=== PATIENT | female | born 1950 | race Caucasian/White ===

== ENCOUNTER 2017-04-10 04:04 | Inpatient (IN) | payer OTHER ==
[~2017-04-10] VITALS: Ht 167.6 cm; Wt 123.3 kg
[~2017-04-10 04:04] MED LIST: AMLODIPINE BESYL5 MG PO; ASPIR-LOW81 MG PO; ASPIRIN81 M2 PO; CARVEDILOL6.25 MG PO; COREG12.5 M1 PO; COZAAR50 MG PO; EFFIENT10 MG PO; FLUOXETINE HCL20 MG PO; FUROSEMIDE40 MG PO; LASIX40 MG PO; LEVEMIR FL100 UNITS/ SC; LEVOFLOXACIN750 MG PO; LEVOTHYROXINE200 MC1 PO; LOSARTAN POTAS100 MG PO; LOSARTAN POTASS50 MG PO; METFORMIN HCL1000 MG PO; METFORMIN HCL500 MG PO; NITROSTAT0.4 MG SL; PRAVACHOL40 MG PO; PROZAC10 MG PO; SIMVASTATIN20 MG PO; SYNTHROID200 MCG PO; TRESIBA FL200 UNIT/1 SC
[2017-04-10 12:55] VITALS: BP 151/72
[2017-04-10 13:02] LABS: POINT-OF-CARE METER ID UU14174212
[2017-04-10 16:56] LABS: POINT-OF-CARE METER ID UU13113675
[2017-04-10 19:03] LABS: HEMATOCRIT 35.2 % (36.0-46.0); MCH 25.5 PG (29.0-34.0); MCHC 30.4 G/DL (30.0-36.0); MEAN PLAT.VOLUME 9.3 uM^3 (9.5-12.4); PLATELET COUNT 382 K/uL (156-360); RBC DIS.WIDTH-CV 16.8 % (11.8-14.6); RBC DIS.WIDTH-SD 51.8 % (39-53); RED BLOOD COUNT 4.19 M/uL (3.80-5.20); WHITE BLOOD COUNT 20.6 K/uL (4.1-10.2)
[2017-04-10 19:28] LABS: TROP-I INTERPRETATION NEGATIVE; TROPONIN-I 0.01 ng/mL (0.0-0.30)
[2017-04-10 19:28] LABS: ANION GAP 7 MEQ/L (2-14); CHLORIDE 104 MEQ/L (99-109); GFR ESTIMATE (CALCULATED) 44 mL/min/; GLUCOSE 167 mg/dL (70-99); POTASSIUM 4.7 MEQ/L (3.7-5.4); SAMPLE HEMOLYSIS CHECK 0; SAMPLE ICTERIC CHECK 0; SAMPLE LIPEMIA CHECK 0; SODIUM 138 MEQ/L (136-147); UREA NITROGEN (BUN) 29 mg/dL (9-23)
[2017-04-10 20:44] VITALS: BP 152/66
[2017-04-10 21:27] LABS: POINT-OF-CARE METER ID UU14314084
[2017-04-10 23:40] VITALS: BP 143/62
[2017-04-11] VITALS (7 sets, daily range): BP systolic 117–163; BP diastolic 57–74
[2017-04-11 01:19] LABS: POINT-OF-CARE METER ID UU14314084
[2017-04-11 05:41] LABS: POINT-OF-CARE METER ID UU14208750
[2017-04-11 07:41] LABS: HEMATOCRIT 35.4 % (36.0-46.0); MCH 25.6 PG (29.0-34.0); MCHC 29.9 G/DL (30.0-36.0); MCV 85.5 FL (83-99); MEAN PLAT.VOLUME 9.7 uM^3 (9.5-12.4); PLATELET COUNT 465 K/uL (156-360); RBC DIS.WIDTH-CV 17.2 % (11.8-14.6); RBC DIS.WIDTH-SD 53.5 % (39-53); RED BLOOD COUNT 4.14 M/uL (3.80-5.20); WHITE BLOOD COUNT 19.1 K/uL (4.1-10.2)
[2017-04-11 08:03] LABS: ANION GAP 9 MEQ/L (2-14); CHLORIDE 102 MEQ/L (99-109); GFR ESTIMATE (CALCULATED) 18 mL/min/; GLUCOSE 210 mg/dL (70-99); POTASSIUM 5.3 MEQ/L (3.7-5.4); SAMPLE HEMOLYSIS CHECK 0; SAMPLE ICTERIC CHECK 0; SAMPLE LIPEMIA CHECK 0; SODIUM 137 MEQ/L (136-147); UREA NITROGEN (BUN) 37 mg/dL (9-23)
[2017-04-11 11:43] LABS: POINT-OF-CARE METER ID UU14162508
[2017-04-11 13:11] LABS: POINT-OF-CARE METER ID UU13113675
[2017-04-11 17:34] LABS: POINT-OF-CARE METER ID UU14162508
[2017-04-11 18:05] LABS: ANION GAP 10 MEQ/L (2-14); CHLORIDE 104 MEQ/L (99-109); GFR ESTIMATE (CALCULATED) 18 mL/min/; GLUCOSE 179 mg/dL (70-99); POTASSIUM 4.9 MEQ/L (3.7-5.4); SAMPLE HEMOLYSIS CHECK 0; SAMPLE ICTERIC CHECK 0; SAMPLE LIPEMIA CHECK 0; SODIUM 138 MEQ/L (136-147); UREA NITROGEN (BUN) 38 mg/dL (9-23)
[2017-04-11 22:28] LABS: ADD MIUA? YES; BILIRUBIN NEGATIVE; BLOOD LARGE; GLUCOSE (STRIP) 50; KETONES NEGATIVE; LEUKOCYTES LARGE; NITRITE NEGATIVE; PROTEIN (STRIP) 100; SPECIFIC GRAVITY 1.016 (1.000-1.030); UROBILINOGEN 0.2 MG/DL (0.2-1.0)
[2017-04-11 22:34] LABS: COLOR RED ((YELLOW))
[2017-04-11 22:35] LABS: BACTERIA NONE SEEN /HPF; CASTS NONE SEEN /LPF; CRYSTALS NONE SEEN; EPITHELIAL CELLS NONE SEEN /HPF; MUCUS NONE SEEN /LPF; RED BLOOD CELLS TNTC /HPF (0-5); WHITE BLOOD CELLS 20-30 /HPF (0-5)
[2017-04-12 00:21] LABS: POINT-OF-CARE METER ID UU14208750
[2017-04-12 04:05] VITALS: BP 133/62
[2017-04-12 05:44] LABS: POINT-OF-CARE METER ID UU14162508
[2017-04-12 06:59] LABS: EOSINOPHIL (%) 0.7 % (0-5); EOSINOPHIL COUNT 0.1 K/uL (0-0.3); HEMATOCRIT 33.6 % (36.0-46.0); IMMATURE GRANULOCYTE (%) 1.3 % (0.0-0.7); IMMATURE GRANULOCYTE COUNT 0.2 K/uL; INSTRUMENT ABS NEUTROPHIL CT 13.5 K/uL; LYMPHOCYTE COUNT 1.5 K/uL (1.0-2.8); MCH 25.9 PG (29.0-34.0); MCHC 29.8 G/DL (30.0-36.0); MEAN PLAT.VOLUME 9.8 uM^3 (9.5-12.4); MONOCYTE (%) 5.4 % (3-12); MONOCYTE COUNT 0.9 K/uL (0-0.8); NEUTROPHIL COUNT 13.5 K/uL (1.8-6.4); PLATELET COUNT 357 K/uL (156-360); RBC DIS.WIDTH-CV 17.7 % (11.8-14.6); RBC DIS.WIDTH-SD 56.8 % (39-53); RED BLOOD COUNT 3.86 M/uL (3.80-5.20); WHITE BLOOD COUNT 16.2 K/uL (4.1-10.2)
[2017-04-12 08:05] LABS: ANION GAP 8 MEQ/L (2-14); CHLORIDE 105 MEQ/L (99-109); GFR ESTIMATE (CALCULATED) 24 mL/min/; GLUCOSE 159 mg/dL (70-99); MAGNESIUM 1.8 mg/dl (1.3-2.7); POTASSIUM 4.9 MEQ/L (3.7-5.4); SAMPLE HEMOLYSIS CHECK 0; SAMPLE ICTERIC CHECK 0; SAMPLE LIPEMIA CHECK 0; SODIUM 139 MEQ/L (136-147); UREA NITROGEN (BUN) 35 mg/dL (9-23)
[2017-04-12 12:37] LABS: POINT-OF-CARE METER ID UU14314084
[2017-04-12 13:04] VITALS: BP 123/58
[2017-04-12 16:12] VITALS: BP 166/73
[2017-04-12 17:29] LABS: POINT-OF-CARE METER ID UU14162508
[2017-04-12 19:56] VITALS: BP 143/66
[2017-04-12 22:01] LABS: POINT-OF-CARE METER ID UU14314084
[2017-04-13] VITALS (7 sets, daily range): BP systolic 116–186; BP diastolic 59–74
[2017-04-13 00:52] LABS: POINT-OF-CARE METER ID UU14314084
[2017-04-13 06:10] LABS: POINT-OF-CARE METER ID UU14314084
[2017-04-13 06:55] LABS: EOSINOPHIL (%) 0.5 % (0-5); EOSINOPHIL COUNT 0.1 K/uL (0-0.3); HEMATOCRIT 32.9 % (36.0-46.0); IMMATURE GRANULOCYTE (%) 0.8 % (0.0-0.7); IMMATURE GRANULOCYTE COUNT 0.1 K/uL; INSTRUMENT ABS NEUTROPHIL CT 14.7 K/uL; LYMPHOCYTE COUNT 1.3 K/uL (1.0-2.8); MCH 25.7 PG (29.0-34.0); MCHC 29.8 G/DL (30.0-36.0); MCV 86.1 FL (83-99); MEAN PLAT.VOLUME 9.8 uM^3 (9.5-12.4); MONOCYTE (%) 5.1 % (3-12); MONOCYTE COUNT 0.9 K/uL (0-0.8); NEUTROPHIL COUNT 14.7 K/uL (1.8-6.4); PLATELET COUNT 364 K/uL (156-360); RBC DIS.WIDTH-CV 17.4 % (11.8-14.6); RBC DIS.WIDTH-SD 54.9 % (39-53); RED BLOOD COUNT 3.82 M/uL (3.80-5.20); WHITE BLOOD COUNT 17.1 K/uL (4.1-10.2)
[2017-04-13 07:19] LABS: ANION GAP 10 MEQ/L (2-14); CHLORIDE 107 MEQ/L (99-109); GFR ESTIMATE (CALCULATED) 17 mL/min/; GLUCOSE 183 mg/dL (70-99); POTASSIUM 4.9 MEQ/L (3.7-5.4); SAMPLE HEMOLYSIS CHECK 0; SAMPLE ICTERIC CHECK 0; SAMPLE LIPEMIA CHECK 0; SODIUM 140 MEQ/L (136-147); UREA NITROGEN (BUN) 39 mg/dL (9-23)
[2017-04-13 12:41] LABS: POINT-OF-CARE METER ID UU14208750
[2017-04-13 16:19] LABS: ANION GAP 8 MEQ/L (2-14); CHLORIDE 105 MEQ/L (99-109); GFR ESTIMATE (CALCULATED) 16 mL/min/; GLUCOSE 206 mg/dL (70-99); POTASSIUM 4.5 MEQ/L (3.7-5.4); SAMPLE HEMOLYSIS CHECK 0; SAMPLE ICTERIC CHECK 0; SAMPLE LIPEMIA CHECK 0; SODIUM 137 MEQ/L (136-147); UREA NITROGEN (BUN) 42 mg/dL (9-23)
[2017-04-13 17:05] LABS: POINT-OF-CARE METER ID UU14208750
[2017-04-14 00:01] LABS: POINT-OF-CARE METER ID UU14162508
[2017-04-14 04:15] VITALS: BP 121/56
[2017-04-14 05:54] LABS: POINT-OF-CARE METER ID UU14208750
[2017-04-14 06:55] LABS: EOSINOPHIL (%) 2.1 % (0-5); EOSINOPHIL COUNT 0.3 K/uL (0-0.3); HEMATOCRIT 29.9 % (36.0-46.0); IMMATURE GRANULOCYTE (%) 0.5 % (0.0-0.7); IMMATURE GRANULOCYTE COUNT 0.1 K/uL; INSTRUMENT ABS NEUTROPHIL CT 11.8 K/uL; LYMPHOCYTE COUNT 1.7 K/uL (1.0-2.8); MCH 26.1 PG (29.0-34.0); MCHC 30.4 G/DL (30.0-36.0); MCV 85.7 FL (83-99); MEAN PLAT.VOLUME 10.1 uM^3 (9.5-12.4); MONOCYTE (%) 5.7 % (3-12); MONOCYTE COUNT 0.8 K/uL (0-0.8); NEUTROPHIL (%) 80.3 % (45-76); NEUTROPHIL COUNT 11.8 K/uL (1.8-6.4); PLATELET COUNT 338 K/uL (156-360); RBC DIS.WIDTH-CV 17.7 % (11.8-14.6); RBC DIS.WIDTH-SD 55.1 % (39-53); RED BLOOD COUNT 3.49 M/uL (3.80-5.20); WHITE BLOOD COUNT 14.7 K/uL (4.1-10.2)
[2017-04-14 07:22] VITALS: BP 125/61
[2017-04-14 07:23] LABS: ANION GAP 9 MEQ/L (2-14); CHLORIDE 108 MEQ/L (99-109); GFR ESTIMATE (CALCULATED) 17 mL/min/; GLUCOSE 151 mg/dL (70-99); MAGNESIUM 1.9 mg/dl (1.3-2.7); POTASSIUM 4.5 MEQ/L (3.7-5.4); SAMPLE HEMOLYSIS CHECK 0; SAMPLE ICTERIC CHECK 0; SAMPLE LIPEMIA CHECK 0; SODIUM 143 MEQ/L (136-147); UREA NITROGEN (BUN) 41 mg/dL (9-23)
[2017-04-14 11:05] VITALS: BP 133/60
[2017-04-14 12:37] LABS: POINT-OF-CARE METER ID UU14208750
[2017-04-14 13:30] LABS: POINT-OF-CARE METER ID UU14208750
[2017-04-14 16:07] VITALS: BP 130/63
[2017-04-14 16:35] LABS: POINT-OF-CARE METER ID UU14314084
[2017-04-14 19:25] LABS: ADD MIUA? YES; BILIRUBIN NEGATIVE; BLOOD LARGE; COLOR YELLOW ((YELLOW)); GLUCOSE (STRIP) NEGATIVE; KETONES NEGATIVE; LEUKOCYTES LARGE; NITRITE NEGATIVE; PROTEIN (STRIP) 100; SPECIFIC GRAVITY 1.015 (1.000-1.030); UROBILINOGEN 0.2 MG/DL (0.2-1.0)
[2017-04-14 19:36] VITALS: BP 144/66
[2017-04-14 20:06] LABS: RED BLOOD CELLS TNTC /HPF (0-5); WHITE BLOOD CELLS 20-30 /HPF (0-5)
[2017-04-14 20:07] LABS: BACTERIA 2+ /HPF; EPITHELIAL CELLS 1+ /HPF; MUCUS RARE /LPF; OTHER RENAL CELLS; UCUL ADDED? YES
[2017-04-14 21:49] LABS: POINT-OF-CARE METER ID UU14208750
[2017-04-14 23:33] VITALS: BP 106/52
[2017-04-15 00:51] LABS: POINT-OF-CARE METER ID UU14208750
[2017-04-15 05:48] LABS: POINT-OF-CARE METER ID UU14208750
[2017-04-15 07:08] LABS: EOSINOPHIL COUNT 0.5 K/uL (0-0.3); HEMATOCRIT 27.6 % (36.0-46.0); IMMATURE GRANULOCYTE (%) 0.6 % (0.0-0.7); IMMATURE GRANULOCYTE COUNT 0.1 K/uL; INSTRUMENT ABS NEUTROPHIL CT 8.8 K/uL; LYMPHOCYTE COUNT 1.5 K/uL (1.0-2.8); MCH 25.5 PG (29.0-34.0); MCHC 29.7 G/DL (30.0-36.0); MEAN PLAT.VOLUME 10.4 uM^3 (9.5-12.4); MONOCYTE (%) 7.1 % (3-12); MONOCYTE COUNT 0.8 K/uL (0-0.8); NEUTROPHIL COUNT 8.8 K/uL (1.8-6.4); PLATELET COUNT 344 K/uL (156-360); RBC DIS.WIDTH-CV 17.4 % (11.8-14.6); RED BLOOD COUNT 3.21 M/uL (3.80-5.20); WHITE BLOOD COUNT 11.7 K/uL (4.1-10.2)
[2017-04-15 07:17] VITALS: BP 165/72
[2017-04-15 07:33] LABS: ANION GAP 9 MEQ/L (2-14); CHLORIDE 107 MEQ/L (99-109); GFR ESTIMATE (CALCULATED) 18 mL/min/; GLUCOSE 170 mg/dL (70-99); MAGNESIUM 1.9 mg/dl (1.3-2.7); POTASSIUM 4.6 MEQ/L (3.7-5.4); SAMPLE HEMOLYSIS CHECK 0; SAMPLE ICTERIC CHECK 0; SAMPLE LIPEMIA CHECK 0; SODIUM 141 MEQ/L (136-147); UREA NITROGEN (BUN) 46 mg/dL (9-23)
[2017-04-15 11:40] VITALS: BP 134/60
[2017-04-15 12:35] LABS: POINT-OF-CARE METER ID UU14162508
[2017-04-15 15:35] VITALS: BP 161/70
[2017-04-15 16:48] LABS: POINT-OF-CARE METER ID UU14162508
[2017-04-15 23:11] LABS: POINT-OF-CARE METER ID UU14162508
[2017-04-15 23:13] VITALS: BP 151/68
[2017-04-16 05:42] LABS: POINT-OF-CARE METER ID UU14208750
[2017-04-16 07:27] VITALS: BP 163/65
[2017-04-16 11:51] LABS: POINT-OF-CARE METER ID UU14162508
[2017-04-16 12:24] LABS: EOSINOPHIL COUNT 0.5 K/uL (0-0.3); HEMATOCRIT 30.9 % (36.0-46.0); IMMATURE GRANULOCYTE (%) 0.4 % (0.0-0.7); IMMATURE GRANULOCYTE COUNT 0.1 K/uL; INSTRUMENT ABS NEUTROPHIL CT 9.4 K/uL; LYMPHOCYTE COUNT 1.7 K/uL (1.0-2.8); MCH 25.6 PG (29.0-34.0); MCHC 29.8 G/DL (30.0-36.0); MCV 85.8 FL (83-99); MONOCYTE (%) 5.7 % (3-12); MONOCYTE COUNT 0.7 K/uL (0-0.8); NEUTROPHIL COUNT 9.4 K/uL (1.8-6.4); PLATELET COUNT 423 K/uL (156-360); RBC DIS.WIDTH-CV 17.2 % (11.8-14.6); RBC DIS.WIDTH-SD 54.7 % (39-53); WHITE BLOOD COUNT 12.4 K/uL (4.1-10.2)
[2017-04-16 13:16] LABS: ALKALINE PHOSPHATASE 105 IU/L (3-129); ANION GAP 9 MEQ/L (2-14); CHLORIDE 104 MEQ/L (99-109); GFR ESTIMATE (CALCULATED) 22 mL/min/; GLUCOSE 224 mg/dL (70-99); POTASSIUM 5.4 MEQ/L (3.7-5.4); SAMPLE HEMOLYSIS CHECK 0; SAMPLE ICTERIC CHECK 0; SAMPLE LIPEMIA CHECK 0; SODIUM 139 MEQ/L (136-147); TOTAL BILIRUBIN 0.3 MG/DL (0.0-1.0); UREA NITROGEN (BUN) 46 mg/dL (9-23)
[2017-04-16 15:20] VITALS: BP 142/59
[2017-04-16] MEDS ORDERED: TRAMADOL HCL50 MG PO (15:33)
[2017-04-16] MEDS ORDERED: CARVEDILOL25 MG PO (15:33)
[2017-04-16] MEDS ORDERED: APRESOLINE25 MG PO (15:33)
[2017-04-16 17:15] LABS: POINT-OF-CARE METER ID UU14208750
[2017-04-16 19:58] VITALS: BP 138/64
[2017-04-17 00:09] LABS: POINT-OF-CARE METER ID UU14208750
[2017-04-17 00:12] VITALS: BP 119/71
[2017-04-17 05:32] LABS: POINT-OF-CARE METER ID UU14208750
[2017-04-17 07:33] LABS: EOSINOPHIL (%) 4.5 % (0-5); EOSINOPHIL COUNT 0.6 K/uL (0-0.3); HEMATOCRIT 28.8 % (36.0-46.0); IMMATURE GRANULOCYTE (%) 0.5 % (0.0-0.7); IMMATURE GRANULOCYTE COUNT 0.1 K/uL; INSTRUMENT ABS NEUTROPHIL CT 9.2 K/uL; LYMPHOCYTE COUNT 2.1 K/uL (1.0-2.8); MCH 25.6 PG (29.0-34.0); MCHC 29.9 G/DL (30.0-36.0); MCV 85.7 FL (83-99); MEAN PLAT.VOLUME 9.9 uM^3 (9.5-12.4); MONOCYTE (%) 7.1 % (3-12); MONOCYTE COUNT 0.9 K/uL (0-0.8); NEUTROPHIL (%) 71.6 % (45-76); NEUTROPHIL COUNT 9.2 K/uL (1.8-6.4); PLATELET COUNT 397 K/uL (156-360); RBC DIS.WIDTH-CV 17.2 % (11.8-14.6); RBC DIS.WIDTH-SD 54.4 % (39-53); RED BLOOD COUNT 3.36 M/uL (3.80-5.20); WHITE BLOOD COUNT 12.8 K/uL (4.1-10.2)
[2017-04-17 07:50] VITALS: BP 162/76
[2017-04-17 08:11] LABS: ANION GAP 7 MEQ/L (2-14); CHLORIDE 106 MEQ/L (99-109); GFR ESTIMATE (CALCULATED) 23 mL/min/; GLUCOSE 166 mg/dL (70-99); MAGNESIUM 2.1 mg/dl (1.3-2.7); POTASSIUM 5.4 MEQ/L (3.7-5.4); SAMPLE HEMOLYSIS CHECK 0; SAMPLE ICTERIC CHECK 0; SAMPLE LIPEMIA CHECK 0; SODIUM 140 MEQ/L (136-147); UREA NITROGEN (BUN) 48 mg/dL (9-23)
[2017-04-17 11:05] VITALS: BP 133/65
[2017-04-17 11:23] LABS: POINT-OF-CARE METER ID UU14208750
== END 2017-04-17 15:31 | disposition home or self-care (01) | DRG 742 ==
LOC: ENRESERV 04:04 → 2SOUTH 06:16 → 2EAST 12:18 → 2SOUTH 12:30 → ENRESERV 15:20 → 2EASTP 20:24 → ENRESERV 04-12 23:57 → 2EAST 04-12 23:58
PROVIDERS: Internal Medicine Nephrology; Nurse Practitioner Acute Care; Obstetrics & Gynecology Gynecologic Oncology
DX: N81.6 Rectocele (principal); N17.0 Acute kidney failure with tubular necrosis; Z68.41 Body mass index [BMI] 40.0-44.9, adult; I50.9 Heart failure, unspecified; N18.3 Chronic kidney disease, stage 3 (moderate); E11.22 Type 2 diabetes mellitus with diabetic chronic kidney disease; N39.0 Urinary tract infection, site not specified; N13.30 Unspecified hydronephrosis; E66.01 Morbid (severe) obesity due to excess calories; D23.9 Other benign neoplasm of skin, unspecified; F32.9 Major depressive disorder, single episode, unspecified; I13.0 Hypertensive heart and chronic kidney disease with heart failure and stage 1 through stage 4 chronic kidney disease, or unspecified chronic kidney disease; E78.5 Hyperlipidemia, unspecified; E06.3 Autoimmune thyroiditis; I25.5 Ischemic cardiomyopathy; I25.10 Atherosclerotic heart disease of native coronary artery without angina pectoris; R31.0 Gross hematuria; R34 Anuria and oliguria; E66.9 Obesity, unspecified; B96.89 Other specified bacterial agents as the cause of diseases classified elsewhere; G47.30 Sleep apnea, unspecified; Z79.890 Hormone replacement therapy; Z90.49 Acquired absence of other specified parts of digestive tract; Z79.4 Long term (current) use of insulin; I25.2 Old myocardial infarction; Z95.5 Presence of coronary angioplasty implant and graft; Z90.710 Acquired absence of both cervix and uterus; Z85.42 Personal history of malignant neoplasm of other parts of uterus; Z80.8 Family history of malignant neoplasm of other organs or systems
CPT/HCPCS: 36415; 74000; 74176; 76770; 78709; 80048; 80048 91; 80053; 81003; 82948; 83735; 84100; 84300; 84484; 85025; 85027; 85610; 86850; 86900; 86901; 86920; 87077; 87086; 87186; 88305; 88307; 89190; 90686; 93005; 94660; 94799; A9562; C1758; C2625; J0131; J0330; J0690; J0696; J1170; J1644; J1815; J1940; J2250; J2405; J2550; J2710; J2765; J3010; J7030; J7120; P9045

== ENCOUNTER → 2017-11-10 | Outpatient (CLI) | payer OTHER ==
[~2017-11-10] MED LIST changes: +APRESOLINE25 MG PO; +CARVEDILOL25 MG PO; +TRAMADOL HCL50 MG PO
== END | disposition home or self-care (01) ==
DX: Z01.818 Encounter for other preprocedural examination (principal); R26.2 Difficulty in walking, not elsewhere classified; R29.3 Abnormal posture; R26.9 Unspecified abnormalities of gait and mobility; M25.562 Pain in left knee; M79.605 Pain in left leg; M25.662 Stiffness of left knee, not elsewhere classified; M62.81 Muscle weakness (generalized); Z74.1 Need for assistance with personal care
CPT/HCPCS: 97161 GP; 97165 GO; 97530 GP; 97535 GO; G8978 GP; G8979 GP; G8980 GP; G8987 GO; G8988 GO; G8989 GO